=== PATIENT | male | born 1930 | race Asian ===

== ENCOUNTER 2019-11-21 09:55 | Emergency (ER) | payer MEDICARE, OTHER ==
[~2019-11-21] VITALS: Ht 165.1 cm; Wt 82.7 kg
[~2019-11-21 09:55] MED LIST: ASPI-556 PO; FEXO-58 PO; FOSI10TA6 PO; HYD25 PO; SIMV-261 PO; TAMS-13 PO
[2019-11-21 09:56] VITALS: BP 157/71
== END 2019-11-21 11:52 | disposition home or self-care (01) ==
LOC: EMS 10:08
DX: M79.671 Pain in right foot (principal); E78.00 Pure hypercholesterolemia, unspecified; Z79.82 Long term (current) use of aspirin; Z79.899 Other long term (current) drug therapy

== ENCOUNTER 2020-11-18 14:04 | Emergency (ER) | payer MEDICARE, OTHER ==
[~2020-11-18] VITALS: Ht 165.1 cm; Wt 80.0 kg
[~2020-11-18 14:04] MED LIST changes: -FEXO-58 PO; -HYD25 PO
[2020-11-18] MEDS ORDERED: LORA10TA7 PO (14:11)
[2020-11-18] MEDS ORDERED: SIMV-260 PO (14:11)
[2020-11-18 15:27] LABS: BASOPHILS % (AUTO) 0.5 % (0.0-2.0); EOSINOPHILS % (AUTO) 1.9 % (1.0-6.0); HEMATOCRIT 33.6 % (41-53); HEMOGLOBIN 10.7 g/dL (13.5-17.5); LYMPHOCYTES # (AUTO) 1.9 K/uL (1.0-4.8); LYMPHOCYTES % (AUTO) 14.9 % (22.0-44.0); MEAN CORPUSCULAR HGB CONC 31.8 G/dL (31.0-37.0); MEAN CORPUSCULAR VOLUME 82 fL (80-100); NEUTROPHILS # (AUTO) 9.6 K/uL (1.8-7.7); NEUTROPHILS % (AUTO) 74.7 % (40.0-70.0); PLATELET COUNT (AUTO) 227 K/uL (150-450); RED BLOOD CELL COUNT(AUTO) 4.11 MIL/uL (4.50-5.90); RED CELL DISTRIBUTION WIDTH 15.8 % (11.5-14.5)
[2020-11-18 15:35] LABS: CALCIUM, TOTAL 8.2 mg/dL (8.8-10.5); CREATININE 1.15 mg/dL (0.60-1.30); POTASSIUM 4.2 mmol/L (3.5-5.1)
[2020-11-18 15:42] LABS: ALBUMIN 3.3 g/dL (3.4-5.0); BILIRUBIN,TOTAL 0.3 mg/dL (0.1-1.0); TOTAL PROTEIN, SERUM 7.1 g/dL (6.4-8.2)
[2020-11-18 15:43] LABS: PROTHROMBIN TIME 10.8 SEC (9.4-11.6)
[2020-11-18 15:45] VITALS: BP 106/71
== END 2020-11-18 16:10 | disposition home or self-care (01) ==
LOC: EMS 14:11
DX: R19.7 Diarrhea, unspecified (principal); E78.00 Pure hypercholesterolemia, unspecified
CPT/HCPCS: 80053; 85025; 85610; 99283